=== PATIENT | female | born 1995 | race African-American/Black ===

== ENCOUNTER 2017-02-17 13:49 | Emergency (ER) | payer SELFPAY ==
[~2017-02-17] VITALS: Ht 172.7 cm; Wt 76.5 kg
[~2017-02-17 13:49] MED LIST: CEPH500C3 PO; TOBR.3%O OP; Z.0.NO CURRENT MEDS
[2017-02-17 13:53] VITALS: BP 142/88; PULSE 96; RESP 18; TEMP 98.7; O2SAT 100
[2017-02-17] MEDS ORDERED: CEPH-459 PO (14:29)
[2017-02-17] MEDS ORDERED: MUPI2%T TOPICAL (14:29)
--- NOTE | 2017-02-17 14:29 | PD ---
HPI Chief Complaint: Skin Problem Time Seen by Provider: 14:05 Travel History International Travel<30 days: No Contact w/Intl Traveler<30days: No Traveled to known affect area: No History of Present Illness HPI 21-year-old female presents emergency department for evaluation of painful facial lesions 3 days. Patient reports she developed a stye on the right upper lash approximately one week ago. She then reports she developed painful open sores on the right eyelid and upper lip. She thought it was possibly due to her Retin-A cream so she stopped using it. She reports the rash did not improve prompting her visit today. She denies fever or chills. No visual disturbance of the right eye. PFSH Past Medical History Medical History: Denies Significant Hx Diminished Hearing: No Immunizations Current: Yes Tetanus Vaccination: > 5 Years Influenza Vaccination: No ?: Not LMP: "End of December" : 0 Para: 0 Past Surgical History Surgical History: No Previous Surgery Social History Alcohol Use: No Tobacco Use: No Substance Use: No Allergies-Medications (Allergen,Severity, Reaction): Coded Allergies: No Known Allergies (Verified , 02/17/17) Reported Meds & Prescriptions Reported Meds & Active Scripts Active No Active Prescriptions or Reported Medications Review of Systems Except as stated in HPI: all other systems reviewed are Neg General / Constitutional: No: Fever Eyes: No: Visual changes HENT: No: Headaches Cardiovascular: No: Chest Pain or Discomfort Respiratory: No: Shortness of Breath Gastrointestinal: No: Abdominal Pain Physical Exam Narrative GENERAL: Well-nourished, well-developed patient. SKIN: Focused skin assessment warm/dry. Multiple erythematous lesions with honey colored crust to the right upper lid near the eyebrow and upper lip. This is consistent with impetigo. There is no ocular involvement HEAD: Normocephalic. EYES: No scleral icterus. No injection or drainage. NECK: Supple, trachea midline. No JVD or lymphadenopathy. CARDIOVASCULAR: Regular rate and rhythm without murmurs, gallops, or rubs. RESPIRATORY: Breath sounds equal bilaterally. No accessory muscle use. GASTROINTESTINAL: Abdomen soft, non-tender, nondistended. MUSCULOSKELETAL: No cyanosis, or edema. BACK: Nontender without obvious deformity. No CVA tenderness. Data Data Last Documented VS Vital Signs Date Time Temp Pulse Resp B/P Pulse Ox O2 Delivery O2 Flow Rate FiO2 02/17/17 13:53 98.7 96 18 142/88 100 MDM Medical Decision Making Medical Screen Exam Complete: Yes Emergency Medical Condition: Yes Differential Diagnosis Impetigo, dermatitis, other Narrative Course 21-year-old female with chief complaint of painful skin lesions on the face. Patient's physical exam is consistent with impetigo. She will be put on Keflex and Bactroban ointment. She was instructed to follow-up with her primary care doctor. Return if new or worsening symptoms. Patient agrees to plan Diagnosis Primary Impression: Impetigo Referrals: Primary Care Physician Additional Instructions: Take the antibiotics as prescribed. Use the ointment on the facial lesions that are not near the eye. Follow-up with her primary care doctor. Return to emergency department if he developed new or worsening symptoms. Scripts Mupirocin Topical (Bactroban Topical)22 Gm Cream1 Applic TOPICAL BID #1 TUBE Ref 0 Prov:Lanie Cisneros 02/17/17 Cephalexin (Keflex)250 Mg Vfd300 Mg PO Q6H #28 CAP Prov:Lanie Cisneros 02/17/17 Disposition: 01 DISCHARGE HOME Condition: Stable Lanie Cisneros Feb 17, 2017 14:29
== END 2017-02-17 14:35 | disposition home or self-care (01) ==
LOC: PHEFT 13:49
DX: L01.00 Impetigo, unspecified (principal)
CPT/HCPCS: 99284